=== PATIENT | female | born 1960 | race Caucasian/White ===

== ENCOUNTER → 2016-06-30 | Outpatient (CLI) | payer BC ==
[~2016-06-30] MED LIST: ATENOLOL50 MG PO; GABAPENTIN300 MG PO; GLYBURIDE1.25 MG PO; MAXZIDE 75/501 EACH PO; METFORMIN HCL500 MG PO; PERCOCET 10/1 TABLET PO; PRILOSEC10 MG PO
== END | disposition home or self-care (01) ==
LOC: AMB 16:29
DX: H44.002 Unspecified purulent endophthalmitis, left eye (principal)
CPT/HCPCS: 87102; 87205; 87799 90; J3465

== ENCOUNTER 2016-07-11 10:27 | Day surgery (SDC) | payer BC ==
[~2016-07-11] VITALS: Ht 149.9 cm; Wt 84.5 kg
[~2016-07-11 10:27] MED LIST changes: +XANAX1 MG PO
[2016-07-11 11:17] VITALS: BP 148/79
[2016-07-11 11:20] LABS: HEMATOCRIT 36.5 % (36.0-46.0); MCH 28.3 PG (29.0-34.0); MCHC 33.2 G/DL (30.0-36.0); MCV 85.3 FL (83-99); MEAN PLAT.VOLUME 9.8 uM^3 (9.5-12.4); PLATELET COUNT 302 K/uL (156-360); RBC DIS.WIDTH-CV 13.3 % (11.8-14.6); RBC DIS.WIDTH-SD 41.1 % (39-53); RED BLOOD COUNT 4.28 M/uL (3.80-5.20); WHITE BLOOD COUNT 6.8 K/uL (4.1-10.2)
[2016-07-11 11:50] LABS: ALKALINE PHOSPHATASE 76 IU/L (3-129); ANION GAP 12 MEQ/L (2-14); CHLORIDE 101 MEQ/L (99-109); GFR ESTIMATE (CALCULATED) > 59 mL/min/; GLUCOSE 210 mg/dL (70-99); POTASSIUM 3.8 MEQ/L (3.7-5.4); SAMPLE HEMOLYSIS CHECK 0; SAMPLE ICTERIC CHECK 0; SAMPLE LIPEMIA CHECK 0; SODIUM 139 MEQ/L (136-147); TOTAL BILIRUBIN 0.4 MG/DL (0.0-1.0); UREA NITROGEN (BUN) 14 mg/dL (9-23)
[2016-07-11 11:59] LABS: POINT-OF-CARE METER ID UU14174212
[2016-07-11 22:31] LABS: POINT-OF-CARE METER ID UU13113675
[2016-07-11 22:38] VITALS: BP 123/81
== END 2016-07-11 22:55 | disposition home or self-care (01) ==
LOC: SDC 10:27
PROVIDERS: Ophthalmology
DX: H20.9 Unspecified iridocyclitis (principal); H35.372 Puckering of macula, left eye; E11.9 Type 2 diabetes mellitus without complications; I10 Essential (primary) hypertension
CPT/HCPCS: 80053; 82948; 85027; 87102; 93005; J0285; J1100; J2795; J3370; J3465